=== PATIENT | female | born 1995 | race Caucasian/White ===

== ENCOUNTER 2020-04-30 17:21 | Emergency (ER) | payer SELFPAY ==
[2020-04-30] MEDS ORDERED: OXYCODONE-ACETAMINOPHEN 5-325 MG TABLET PO ONE (17:39)
--- NOTE | 2020-04-30 17:41 | ER Document Report ---
ED Medical Screen (RME) - General Chief Complaint: Toe Injury Stated Complaint: LEFT GREAT TOE INJURY Time Seen by Provider: 04/30/20 17:36 Mode of Arrival: Ambulatory Information source: Patient Notes: 24-year-old female presented to ED for complaint of severe pain to the left great toe. She states she dropped a table on her toe at about 4:45 PM. She states she took 2 Advil but is still in a lot of pain. There are lacerations and her toe is smashed. I have treated her with Percocet in the triage area we will get a left foot x-ray and she will be seen by another provider. I have greeted and performed a rapid initial assessment of this patient. A comprehensive ED assessment and evaluation of the patient, analysis of test results and completion of medical decision making process will be conducted by an additional ED providers. - Related Data Allergies/Adverse Reactions: Penicillins Allergy (Verified 04/30/20 17:29) Sulfa (Sulfonamide Antibiotics) Allergy (Verified 04/30/20 17:29) Past Medical History - Social History Frequency of alcohol use: None Drug Abuse: None Physical Exam - Vital signs Vitals: Temp Pulse Resp BP Pulse Ox 98.9 F 100 22 H 138/88 H 94 04/30/20 17:30 04/30/20 17:30 04/30/20 17:30 04/30/20 17:30 04/30/20 17:30 Course - Vital Signs Vital signs: Temp Pulse Resp BP Pulse Ox 98.9 F 100 22 H 138/88 H 94 04/30/20 17:30 04/30/20 17:30 04/30/20 17:30 04/30/20 17:30 04/30/20 17:30
[2020-04-30] MEDS ORDERED: DIPH/PERTUSS(ACELL)/TETANUS VAC/PF 0.5 ML SYR (>=10YO) IM ONE (18:01)
[2020-04-30] MEDS ORDERED: LIDOCAINE 2% INJ (20 MG/ML) 20 ML MDV INJ ONE (18:22)
--- NOTE | 2020-04-30 18:24 | RADIOLOGY REPORT (SQ) ---
EXAM DESCRIPTION: FOOT LEFT COMPLETE IMAGES COMPLETED DATE/TIME: 04/30/2020 6:13 pm REASON FOR STUDY: Dropped a table on her left great toe COMPARISON: None. EXAM PARAMETERS: NUMBER OF VIEWS: Three views. TECHNIQUE: AP, lateral and oblique radiographic images acquired of the left foot. LIMITATIONS: None. FINDINGS: MINERALIZATION: Normal. BONES: No dislocation. Distal tuft fracture of the left great toe. . JOINTS: No effusion. SOFT TISSUES: No significant soft tissue swelling. No radiopaque foreign body. OTHER: No other significant finding. IMPRESSION: Distal tuft fracture of the left great toe. TECHNICAL DOCUMENTATION: JOB ID: [id number] [place]-72 2010 [employer]- All Rights Reserved Reading location - IP/workstation name: [email or web address]
--- NOTE | 2020-04-30 18:27 | ER Document Report ---
ED Extremity Problem, Lower - General Chief Complaint: Toe Injury Stated Complaint: LEFT GREAT TOE INJURY Time Seen by Provider: 04/30/20 17:36 Mode of Arrival: Ambulatory Information source: Patient Notes: 24-year-old woman presents emergency department with injury to her left great toe. Apparently a table fell onto her foot injuring the left great toe. She denies any other associated injuries, tetanus shot was given in the emergency department she was also given a dose of oral pain medications prior to being examined. X-ray of the left foot reveals mckenna fracture. There is some active bleeding noted and the toenail appears to be disrupted from the nailbed. - Related Data Allergies/Adverse Reactions: Penicillins Allergy (Verified 04/30/20 17:29) Sulfa (Sulfonamide Antibiotics) Allergy (Verified 04/30/20 17:29) Past Medical History - General Information source: Patient - Social History Smoking Status: Current Every Day Smoker Frequency of alcohol use: None Drug Abuse: None Family History: Reviewed & Not Pertinent Review of Systems - Review of Systems Notes: Constitutional: Negative for fever. HENT: Negative for sore throat. Eyes: Negative for visual changes. Cardiovascular: Negative for chest pain. Respiratory: Negative for shortness of breath. Gastrointestinal: Negative for abdominal pain, vomiting or diarrhea. Genitourinary: Negative for dysuria. Musculoskeletal: See HPI Skin: Negative for rash. Neurological: Negative for headaches, weakness or numbness. 10 point ROS negative except as marked above and in HPI. Physical Exam - Vital signs Vitals: Temp Pulse Resp BP Pulse Ox 98.9 F 100 22 H 138/88 H 94 04/30/20 17:30 04/30/20 17:30 04/30/20 17:30 04/30/20 17:30 04/30/20 17:30 - Notes Notes: PHYSICAL EXAMINATION: Physical Exam: General: Well-nourished well-developed 4-year-old woman complaining of pain in the left great toe. HEENT: NC/AT, pupils equal round and reactive to light, MM moist,nares clear, oropharynx clear, airway patent Neck: supple, no adenopathy, no masses. Good range of motion Lungs: clear, no wheezing, no rales no rhonchi CVS: Regular rate and rhythm no murmur gallop or rub Abdomen: Soft, active, nontender, no masses, no hepatosplenomegaly Ext: Left great toe with disruption of the nailbed, toenail with a anterior attachment, laceration lateral great toe extending across the nailbed with active bleeding. Neuro: Alert and responsive, moving all 4 extremities on command, cranial nerves intact, no focal findings Skin: Intact no open lesions, no rash PSYCH: Normal mood, normal affect. Course - Re-evaluation Re-evalutation: 04/30/20 19:28 X-ray was reviewed and no obvious fracture was seen, the toenail was removed after a nerve block was performed on the right great toe. 2 cm laceration extending from the lateral toe across the distal edge of the toe nailbed repaired with 5-0 Vicryl. Dressing was applied and a postop shoe provided. Patient was given Keflex and Dosepak of Venetia to take at home. I have encouraged the patient to keep the area dry to do a dressing change daily, she is encouraged to follow-up with an urgent care or her primary care doctor for a recheck early next week. - Vital Signs Vital signs: Temp Pulse Resp BP Pulse Ox 97.8 F 64 16 150/58 H 99 04/30/20 19:45 04/30/20 19:45 04/30/20 19:45 04/30/20 19:45 04/30/20 19:45 - Diagnostic Test Radiology reviewed: Image reviewed, Reports reviewed Procedures - Laceration/Wound Repair Left Great toe Time completed: 19:25 Wound length (cm): 2.5 Wound's Depth, Shape: Irregular, Nail-avulsed - Disrupted at the nailbed and removed after nerve block. Laceration pre-procedure: Chloraprep applied Anesthetic type: 2% Lidocaine Volume Anesthetic (mLs): 5 Wound explored: Clean, No foreign body removed Wound Repaired With: Sutures Suture Size/Type: 5:0, Vicryl Number of Sutures: 6 Post-procedure wound care: Sterile dressing applied, Other - Postop shoe applied. Post-procedure NV exam normal: Yes Complications: No Discharge - Discharge Clinical Impression: Laceration of left great toe Qualifiers: Encounter type: initial encounter Damage to nail status: with damage Foreign body presence: without foreign body Qualified Code(s): S91.212A - Laceration without foreign body of left great toe with damage to nail, initial encounter Fracture of left great toe Qualifiers: Encounter type: initial encounter Fracture type: open Phalanx: distal Fracture alignment: nondisplaced Qualified Code(s): S92.425B - Nondisplaced fracture of distal phalanx of left great toe, initial encounter for open fracture Condition: Good Disposition: HOME, SELF-CARE Instructions: Antibiotic Ointment Protection ([facility]), Laceration Care ([facility]), Prophylactic Antibiotic ([facility]), Soap Cleansing ([facility]), Tetanus Immunization Given ([facility]) Additional Instructions: In the emergency department with a injury to your left great toe. The toenail was removed and sutures were applied to the distal toe and nailbed laceration. There is also noted a nondisplaced fracture of the tuft, very distal portion of the toe itself. Please take the medications as prescribed Keflex, and pain medication as directed. You may also take ibuprofen for pain in conjunction with the [place]. He is follow-up with a physician on next week for a recheck of the toe. HOME CARE INSTRUCTIONS & INFORMATION: Thank you for choosing us for your medical needs. We hope you're satisfied with the care you received. After you leave, you must properly care for your problem and, at the same time, observe its progress. Any condition can change. Some illnesses can change rapidly over hours or days. If your condition worsens, return to the Emergency Department or see your physician promptly. ABOUT YOUR X-RAYS AND EKG'S: If you had an EKG or X-rays taken, they have been read by the Emergency Physician. The X-rays and EKG's will also be read by a Radiologist or Traveling Buyer within 24 hours. If discrepancies are noted, you will be notified by telephone. Please be certain the ED has a correct telephone number & address where you can be reached. Also, realize that some fractures or abnormalities do not show up on initial X-rays. If your symptoms continue, see your physician. ABOUT YOUR LABORATORY TEST: If you had laboratory tests, the results have been reviewed by the Emergency Physician. Some test results (for example cultures) may not be available for several days. You will be contacted if any test result shows you need additional treatment. Please be certain the ED has a correct telephone number and address where you can be reached. ABOUT YOUR MEDICATIONS: You will receive instructions on how to take your medicine on the prescription label you receive. Additional information may be provided by the Pharmacy. If you have questions afterwards, call the ED for clarification or further instructions. Some prescribed medications may cause drowsiness. Do not perform tasks such as driving a car or operating machinery without consulting your Pharmacist. If you feel you need a refill of pain medication, your condition will need re-evaluation. Please do not call for a refill of any medication. ABOUT YOUR SIGNATURE: Signature of this document acknowledges to followin. Understanding that you received emergency treatment and that you may be released before al medical problems are known or treated. Please be certain the ED has a correct phone number & address where you can be reached. 2. Acknowledgement that you will arrange for follow-up care as recommended. 3. Authorization for the Emergency Physician to provide information to your follow-up Physician in order to maximize your care. AT ANY TIME, IF YOUR SYMPTOMS CHANGE SIGNIFICANTLY OR WORSEN OR YOU DEVELOP NEW SYMPTOMS, RETURN TO THE EMERGENCY DEPARTMENT IMMEDIATELY FOR RE-EVALUATION. OUR GOAL IS TO PROVIDE EXCELLENT MEDICAL CARE! WE HOPE THAT WE HAVE MET YOUR EXPECTATIONS DURING YOUR EMERGENCY DEPARTMENT VISIT AND THAT YOU FEEL YOU HAVE RECEIVED EXCELLENT CARE! Prescriptions: Cephalexin Monohydrate [Keflex 500 mg Capsule] 500 mg PO Q8 10 Days capsule Ibuprofen [Motrin 800 mg Tablet] 800 mg PO Q8H PRN #30 tab PRN Reason: Forms: Return to Work
[2020-04-30] MEDS ORDERED: HYDROCODONE/ACETAMINOPHEN 5-325 MG (6 TAB/ER DISP) PO PRN (19:25)
[2020-04-30] MEDS ORDERED: CEPHALEXIN 500 MG CAPSULE PO ONE (19:25)
[2020-04-30 19:58] VITALS: BP 150/58
== END 2020-04-30 19:58 | disposition home or self-care (01) ==
LOC: ER 17:21
DX: S92.425B Nondisplaced fracture of distal phalanx of left great toe, initial encounter for open fracture (principal); S91.212A Laceration without foreign body of left great toe with damage to nail, initial encounter; W20.8XXA Other cause of strike by thrown, projected or falling object, initial encounter; Z23 Encounter for immunization; F17.200 Nicotine dependence, unspecified, uncomplicated; Z88.0 Allergy status to penicillin; Z88.2 Allergy status to sulfonamides
CPT/HCPCS: 99283; 73630; 90715; 12001; 11730; J3490